=== PATIENT | male | born 1980 | race Caucasian/White ===

== ENCOUNTER 2017-03-25 22:41 | Emergency (ER) | payer MEDICAID, OTHER, SELFPAY ==
[2017-03-25 22:42] VITALS: BP 137/84; PULSE 59; RESP 18; TEMP 36.8; O2SAT 99; BMI 25.8
--- NOTE | 2017-03-25 22:49 | [facility].EDGENADL ---
ED Disposition Clinical Impression: Chest pain, atypical Disposition: Home, Self-Care Condition on Discharge: Good Instructions: DI for Atypical Chest Pain Additional Instructions: Call Dr. Rodriguez Monday for follow-up to discuss possible stress test. Additional instructions for CHEST PAIN: See your physician as soon as possible for further evaluation. Return immediately if worsening chest pain, vomiting, shortness of breath, fever, coughing of blood. Referrals: Yury Fischer MD [Primary Care Provider] - Isidoro Rodriguez MD [Staff Physician] - (call Monday) - Critical Care Critical Care Time: No Attestation: On , the high probability of a clinically significant, sudden or life threatening deterioration of the following system(s) required my full and direct attention, intervention and personal management. The time I documented below is in addition to time spent performing reported procedures but includes the following listed in this critical care notation. Medical Decision Making Vital Signs: 03/25/17 22:42 03/25/17 23:26 Temperature 98.2 F Temperature Source Oral Pulse Rate [Right Brachial] 59 L 57 L Respiratory Rate 18 16 Blood Pressure [Right Arm] 137/84 121/77 Blood Pressure Mean [Right Arm] 101 91 Blood Pressure Source [Right Arm] Automatic Cuff Automatic Cuff Blood Pressure Position [Right Arm] Supine Supine 02 Sat by Pulse Oximetry 99 99 Oxygen Delivery Method Room Air Room Air - Lab Data Lab Results 03/25/17 23:00: WBC 7.6, RBC 5.43, Hgb 16.3, Hct 47.1, MCV 86.7, MCH 30.0, MCHC 34.6, RDW 12.7, Plt Count 278, MPV 6.8 L, Neut % (Auto) 53.9, Lymph % (Auto) 36.7, [facility] % (Auto) 6.8, Eos % (Auto) 1.8, Baso % (Auto) 0.9, Neut # (Auto) 4.1, Lymph # (Auto) 2.8, [facility] # (Auto) 0.5, Eos # (Auto) 0.1, Baso # (Auto) 0.1 03/25/17 23:00: Sodium 141, Potassium 3.9, Chloride 105, Carbon Dioxide 32, Anion Gap 7.9, BUN 12, Creatinine 0.81, Estimated Creat Clear 147, Estimated GFR 108, Est GFR ( Amer) 131, Glucose 97, Calcium 9.0, Total Bilirubin 0.4, AST 16, ALT 39, Alkaline Phosphatase 109, Total Creatine Kinase 123, CK-MB (CK-2) 0.6, CK-MB (CK-2) Rel Index 0.5, Troponin I < 0.02, Total Protein 7.1, Albumin 4.0, Globulin 3.1, Albumin/Globulin Ratio 1.3 Result diagrams: 03/25/17 23:00 03/25/17 23:00 Orders (Tests/Meds): ORDERS Category Date Time Status Chest XR 2 view (NOT portable) [XR chest 2V] Stat Exams 03/25/17 22:52 Taken - Radiology Data #1 Image(s): Chest Image Reviewed: Yes I reviewed the patient's radiology results Preliminary Findings: Normal/NAD - ECG Data Tracing #1 EKG interpreted by Ajit Pathak MD: Rhythm: sinus bradycardia Rate: 55 [place]: normal Ectopy: none Conduction: normal ST Segment Changes: none T Wave Changes: none Q Waves: none No evidence of acute ischemia or injury No prior EKGs available for comparison - Alf Inquiry Pt receiving controlled substance: No Medical Decision Making Narrative: PULMONARY EMBOLISM RULE-OUT CRITERIA: 1. Age > 49? No 2. Pulse greater than 99/min? No 3. Room air pulse ox <95%? No 4. Hemoptysis? No 5. On estrogen? No 6. Prior diagnosis of DVT or PE? No 7. Surgery or trauma requiring endotracheal intubation or hospitalization in past 4 wks? No 8. Unilateral leg swelling? No The patient is low risk and the PERC score is 0, indicating no further workup for pulmonary embolism is necessary. 11:48 PM: The patient has had constant, continuous chest pain since Monday night 3 days ago. EKG and troponin negative. I do not feel a second troponin is needed under the circumstances, with this time course. I estimate there is LOW risk for PULMONARY EMBOLISM, ACUTE CORONARY SYNDROME, OR THORACIC AORTIC DISSECTION, thus I consider the discharge disposition reasonable. She states cannot see her primary care physician until June because of new insurance. He states he believes he can see a specia
--- NOTE | 2017-03-25 22:52 | XR_ITS ---
XR chest 2V Ordering Physician: Ajit Pathak MD Patient Age: 36 years: Male HISTORY: ITS.REASON: CHEST PAIN Left lower chest pain 3 days. Nonsmoker. TECHNIQUE: PA and lateral chest COMPARISON :PA and lateral chest 12/25/2008 FINDINGS The lungs are well expanded and clear with no active disease and no significant change since prior studies. Heart, darshan and mediastinal structures satisfactory and stable. Chest wall T-spine stable with minor degenerative changes T-spine. IMPRESSION: Stable chest with nothing definitely acute. Lungs clear
--- NOTE | 2017-03-25 22:53 | PC.NURSE ---
STATES HE TOOK2 ASPIRIN 325 MG PO TODAY
[2017-03-25 23:06] LABS: Basophils # 0.1 K/mm3 (0-0.2); Basophils % 0.9 % (0.1-2.0); Eosinophils # 0.1 K/mm3 (0.0-0.4); Eosinophils % 1.8 % (0.1-12.0); Hematocrit 47.1 % (42.0-52.0); Hemoglobin 16.3 g/dL (14.1-18.0); Lymphocytes # 2.8 K/mm3 (0.7-4.5); Lymphocytes % 36.7 K/mm3 (10-50); Mean Corpuscular HGB Conc 34.6 g/dL (31.8-35.4); Mean Corpuscular Volume 86.7 fl (80-94); Mean Platelet Volume 6.8 fl (7.4-10.4); Monocytes # 0.5 K/mm3 (0.1-1.0); Monocytes % 6.8 % (1.7-9.3); Neutrophils # 4.1 K/mm3 (1.8-7.8); Neutrophils % 53.9 % (37.0-80.0); Platelet Count 278 K/mm3 (142-424); Red Blood Count 5.43 M/mm3 (4.60-6.20); Red Cell Distribution Width 12.7 % (11.5-17.5); White Blood Count 7.6 K/mm3 (4.8-10.8)
[2017-03-25 23:26] VITALS: BP 121/77; PULSE 57; RESP 16; O2SAT 99
[2017-03-25 23:34] LABS: Alanine Aminotransferase 39 U/L (12-78); Albumin/Globulin Ratio 1.3 (1.1-1.8); Alkaline Phosphatase 109 U/L (46-116); Anion Gap 7.9 mEq/L (5-15); Aspartate Amino Transferase 16 U/L (15-37); Bilirubin,Total 0.4 mg/dL (0.2-1.0); Blood Urea Nitrogen 12 mg/dL (7-18); CKMB Relative Index 0.5 U/L (0-4.0); Carbon Dioxide 32 mmol/L (21.0-32.0); Chloride 105 mmol/L (98-107); Creatine Kinase 123 U/L (39-308); Creatine Kinase MB 0.6 mg/ml (0.0-3.6); Creatinine Clearance Estimated 147 mL/min (0-300); Creatinine,Serum 0.81 mg/dL (0.70-1.30); Estimated Glomerular Filt Rate 108 ml/min (>60); GFR (African American) 131 ML/MIN (>60); Globulin 3.1 gm/dl (1.3-3.2); Glucose 97 mg/dL (74-106); Potassium 3.9 mmoL/L (3.5-5.1); Sodium 141 mmol/L (136-145); Total Protein,Serum 7.1 gm/dL (6.4-8.2); Troponin I < 0.02 ng/ml (0.00-0.06)
[2017-03-26 00:03] VITALS: BP 121/74; PULSE 61; RESP 12; TEMP 37.1; O2SAT 97
== END 2017-03-26 00:03 | disposition home or self-care (01) ==
PROVIDERS: Emergency Provider Emergency Medicine; Family Provider Internal Medicine Adolescent Medicine; PCP Internal Medicine Adolescent Medicine
DX: R07.89 Other chest pain (principal); E78.5 Hyperlipidemia, unspecified; Z88.0 Allergy status to penicillin; Z86.718 Personal history of other venous thrombosis and embolism
CPT/HCPCS: 71046; 80053; 82550; 82553; 84484; 85025; 93005; 99283